=== PATIENT | male | born 1995 | race Caucasian/White ===

== ENCOUNTER 2019-12-29 22:32 | Emergency (ER) | payer SELFPAY ==
[~2019-12-29] VITALS: Ht 160 cm; Wt 63.5 kg
[2019-12-29 22:38] VITALS: BP_SYST 165
--- NOTE | 2019-12-29 22:41 | NUR ---
ER at bedside examining patient.
--- NOTE | 2019-12-29 22:41 | NUR ---
Patient to ER bed 05 to gown for evaluation. Side rails up. Report given to JOVANY BLANC
--- NOTE | 2019-12-29 22:41 | NUR ---
Pt brought in by family member. Pt states he was resting and felt sudden inset of chest pain and shortness of breath. Pt stated that he felt parasthesia and cramping in the hands and arms as well. pt denies syncope, any history of illness or chest pain. Pt denies any other medical complaint at this time. Pt awake, alert, oriented x4 with steady gait.
[2019-12-29] MEDS ORDERED: LORazepam 2 MG/ML VIAL IVP ONE (22:45)
[2019-12-29] MEDS ORDERED: NACL 0.9% 1,000 ML IV ONE (22:45)
[2019-12-29 22:59] LABS: BASOPHILS % (AUTO) 0.6 % (0.0-2.0); EOSINOPHILS # (AUTO) 0.1 K/uL (0.0-0.4); EOSINOPHILS % (AUTO) 1.3 % (0.0-4.0); HEMATOCRIT 41.7 % (36-54); HEMOGLOBIN 14.5 g/dL (14.0-18.0); LYMPHOCYTES # (AUTO) 4.2 K/uL (1.0-5.5); LYMPHOCYTES % (AUTO) 51.4 % (20.5-51.5); MEAN CORPUSCULAR HEMOGLOBIN 30 pg (27-31); MEAN CORPUSCULAR HGB CONC 35 % (32-36); MEAN CORPUSCULAR VOLUME 87 fL (79.0-98.0); MONOCYTES # (AUTO) 0.8 K/uL (0.0-1.0); MONOCYTES % (AUTO) 9.6 % (1.7-9.3); NEUTROPHILS % (AUTO) 37.1 % (40.0-70.0); PLATELET COUNT (AUTO) 248 K/uL (130-430); RED CELL DISTRIBUTION WIDTH 12.9 % (9.0-15.0); WHITE BLOOD COUNT (AUTO) 8.1 K/uL (4.8-10.8)
[2019-12-29 23:15] LABS: CALCIUM 9.8 mg/dL (8.4-11.0); CREATININE 1.25 mg/dL (0.55-1.30)
[2019-12-29 23:29] LABS: ALBUMIN 4.3 g/dL (3.4-4.8); FREE T4 (FREE THYROXINE) 1.2 ng/dl (0.8-1.5); THYROID STIMULATING HORMONE 4.16 uIu/mL (0.36-3.74); TOTAL BILIRUBIN 0.3 mg/dL (0.0-1.0)
[2019-12-29 23:32] LABS: POTASSIUM 2.8 mmol/L (3.5-5.1)
--- NOTE | 2019-12-29 23:32 | NUR ---
CRITICAL LAB REPORTING - POTASSIUM 2.8. AWARE.
[2019-12-29] MEDS ORDERED: POTASSIUM CHLORIDE 20 MEQ TAB.PRT.SR PO ONE (23:45)
[2019-12-29] MEDS ORDERED: MAGNESIUM OXIDE 400 MG TABLET PO ONE (23:45)
[2019-12-30] MEDS ORDERED: POTASSIUM CHLORIDE 20 MEQ TAB.PRT.SR ONE (00:14)
[2019-12-30] MEDS ORDERED: POTASSIUM CHLORIDE 10 MEQ TAB.PRT.SR ONE (00:15)
[2019-12-30 00:24] VITALS: BP_SYST 165
--- NOTE | 2019-12-30 00:24 | NUR ---
Patient given written and verbal discharge instructions and verbalizes understanding. ER MD discussed with patient the results and treatment provided. Patient in stable condition. ID arm band removed. IV catheter removed intact and dressing applied, no active bleeding. No RX given. Patient educated on pain management and to follow up with PMD. Pain Scale 0/10. Opportunity for questions provided and answered.
== END 2019-12-30 00:24 | disposition home or self-care (01) ==
LOC: SED 22:32
DX: F41.0 Panic disorder [episodic paroxysmal anxiety] (principal); R06.4 Hyperventilation; I10 Essential (primary) hypertension; E87.6 Hypokalemia
CPT/HCPCS: 36415; 71045; 80053; 82550; 83880; 84439; 84443; 84484; 85025; 93005; 96361; 96374; 99285; J2060; J7030